=== PATIENT | male | born 1950 | race Caucasian/White ===

== ENCOUNTER → 2018-05-02 | Outpatient (CLI) | payer OTHER | END | disposition home or self-care (01) | LOC: RAH 08:31 | PROVIDERS: ATTEND Internal Medicine | DX: I65.21 Occlusion and stenosis of right carotid artery (principal); I07.1 Rheumatic tricuspid insufficiency | CPT/HCPCS: 93306; 93880 ==

== ENCOUNTER → 2018-06-21 | Outpatient (CLI) | payer OTHER ==
[~2018-06-21] VITALS: Ht 177.8 cm; Wt 79.4 kg
[~2018-06-21] MED LIST: REGADENOSON 0.4 MG/5 ML PF SYG IVP SCH
== END | disposition home or self-care (01) ==
LOC: SHCH 09:27
PROVIDERS: ATTEND Internal Medicine Cardiovascular Disease
DX: G45.9 Transient cerebral ischemic attack, unspecified (principal); I73.9 Peripheral vascular disease, unspecified; I71.9 Aortic aneurysm of unspecified site, without rupture
CPT/HCPCS: 78452; 93017; 96374; A9500 ×2; J2785

== ENCOUNTER → 2018-07-02 | Outpatient (CLI) | payer OTHER | END | disposition home or self-care (01) | LOC: SHCH 13:04 | PROVIDERS: ATTEND Internal Medicine Cardiovascular Disease | DX: I71.4 Abdominal aortic aneurysm, without rupture (principal); I73.9 Peripheral vascular disease, unspecified | CPT/HCPCS: 93925; 93978 ==

== ENCOUNTER → 2018-08-03 | Outpatient (CLI) | payer OTHER ==
[~2018-08-03] VITALS: Ht 175.3 cm; Wt 76.4 kg
[~2018-08-03] MED LIST changes: +ASCO500T9 PO; +ASPI-555 PO; +CLIN300C9 PO; +CLOP75TA32 PO; +FLAX100030 PO; +GLUC-104 PO; +MULT-1192 PO; -REGADENOSON 0.4 MG/5 ML PF SYG IVP SCH; +ROSU40TA20 PO; +UBID200C37 PO
[2018-08-03 12:06] VITALS: BP 143/80
[2018-08-03 12:10] LABS: BASOPHILS % (AUTO) 0.4 % (0.0-5.0); EOSINOPHILS % (AUTO) 0.4 % (0.0-8.0); HEMATOCRIT 47.2 % (42-54); LYMPHOCYTES % (AUTO) 28.8 % (21.0-51.0); MEAN CORPUSCULAR HEMOGLOBIN 32.8 pg (27.0-33.0); MEAN CORPUSCULAR HGB CONC 33.8 g/dL (32.0-36.0); MEAN CORPUSCULAR VOLUME 96.9 fL (79-99); MONOCYTES % (AUTO) 7.2 % (3.0-13.0); NEUTROPHILS % (AUTO) 63.2 % (40.0-77.0); NUCLEATED RED BLOOD CELLS 0.1 % (0.0-0.19); PLATELET COUNT (AUTO) 189 K/uL (130-400); RED BLOOD CELL COUNT(AUTO) 4.87 MIL/uL (4.50-6.20); RED CELL DISTRIBUTION WIDTH 12.7 % (11.0-15.5); WHITE BLOOD COUNT (AUTO) 7.4 K/uL (4.8-10.8)
[2018-08-03 12:12] LABS: APPEARANCE,URINE Clear (CLEAR); BILIRUBIN,URINE Negative (NEGATIVE); COLOR,URINE Yellow (YELLOW); GLUCOSE, URINE (UA) Negative (NEGATIVE); KETONES,URINE Negative (NEGATIVE); LEUKOCYTE ESTERASE ,URINE Negative (NEGATIVE); NITRATE,URINE Negative (NEGATIVE); OCCULT BLOOD,URINE Negative (NEGATIVE); PH,URINE 5.5 (5.0-8.0); PROTEIN,URINE Negative (NEGATIVE); UROBILINOGEN,URINE 0.2 mg/dL (0.2-1.0)
[2018-08-03 12:20] LABS: POTASSIUM 4.7 mmol/L (3.5-5.1)
[2018-08-03 12:24] LABS: INR 0.95 (0.85-1.15); PARTIAL THROMBOPLASTIN TIME 31.7 SEC (26.3-35.5)
--- NOTE | 2018-08-06 15:45 | NUR ---
CX PT HERE. STATES HES HAD 2 NOSEBLEEDS WHERE THE BLOOD IS "GUSHING OUT". INFORMED JOE SHAW OF NOSEBLEEDS. ORDERS RECEIVED TO CX PROCEDURE. PT TO SEE HIS PCP FOR EVALUATION AND POSSIBLE ENT CONSULTATION. INFORMED PT OF ORDERS. VERBALIZED UNDERSTANDING.
== END ==
LOC: DAH 10:00 → EDSTATUS 06-04 08:00
PROVIDERS: ATTEND Internal Medicine Cardiovascular Disease
DX: Z01.818 Encounter for other preprocedural examination (principal); I73.9 Peripheral vascular disease, unspecified; I71.4 Abdominal aortic aneurysm, without rupture
CPT/HCPCS: 36415; 71045; 80048; 81003; 85025; 85610; 85730; 93005

== ENCOUNTER 2018-10-10 05:54 | Inpatient (IN) | payer OTHER | END 2018-10-13 15:10 | disposition home or self-care (01) | LOC: DAH 05:54 → 2AH 05:55 → DAHIP 05:55 → 2AH 17:26 | PROC: 037Y3ZZ Dilation of Upper Artery, Percutaneous Approach (ICD-10-PCS; principal; 2018-10-11 14:45) | PROC: 4A12XSH Monitoring of Cardiac Vascular Perfusion using Indocyanine Green Dye, External Approach (ICD-10-PCS; 2018-10-11 14:45) | PROC: B3101ZZ Fluoroscopy of Thoracic Aorta using Low Osmolar Contrast (ICD-10-PCS; 2018-10-11 14:45) | PROC: B3181ZZ Fluoroscopy of Bilateral Internal Carotid Arteries using Low Osmolar Contrast (ICD-10-PCS; 2018-10-11 14:45) | PROC: B4101ZZ Fluoroscopy of Abdominal Aorta using Low Osmolar Contrast (ICD-10-PCS; 2018-10-11 14:45) | PROC: B41C1ZZ Fluoroscopy of Pelvic Arteries using Low Osmolar Contrast (ICD-10-PCS; 2018-10-11 14:45) | DX: I65.21 Occlusion and stenosis of right carotid artery (principal) ==

== ENCOUNTER → 2018-11-12 | Outpatient (CLI) | payer OTHER ==
[~2018-11-12] MED LIST changes: -CLIN300C9 PO; +IOHEXOL-350 50ML VIAL IV ONE; +IOHEXOL-350 75 ML VIAL IV ONE; +TIMO1DRO2 OU
== END | disposition home or self-care (01) ==
LOC: RAH 08:55
PROVIDERS: ATTEND Internal Medicine Cardiovascular Disease
DX: I71.4 Abdominal aortic aneurysm, without rupture (principal); K57.30 Diverticulosis of large intestine without perforation or abscess without bleeding; I70.209 Unspecified atherosclerosis of native arteries of extremities, unspecified extremity
CPT/HCPCS: 75635; Q9967 ×2

== ENCOUNTER 2018-12-12 08:00 | Inpatient (IN) | payer OTHER ==
[~2018-12-12] VITALS: Ht 172.7 cm; Wt 77.9 kg
[~2018-12-12 08:00] MED LIST changes: -IOHEXOL-350 50ML VIAL IV ONE; -IOHEXOL-350 75 ML VIAL IV ONE
[2018-12-12 09:14] VITALS: BP 169/86
[2018-12-12 09:25] LABS: BASOPHILS % (AUTO) 0.6 % (0.0-5.0); EOSINOPHILS % (AUTO) 1.7 % (0.0-8.0); HEMATOCRIT 45.3 % (42-54); LYMPHOCYTES % (AUTO) 29.8 % (21.0-51.0); MEAN CORPUSCULAR HEMOGLOBIN 31.7 pg (27.0-33.0); MEAN CORPUSCULAR HGB CONC 32.7 g/dL (32.0-36.0); MEAN CORPUSCULAR VOLUME 96.8 fL (79-99); MONOCYTES % (AUTO) 8.8 % (3.0-13.0); NEUTROPHILS % (AUTO) 59.1 % (40.0-77.0); PLATELET COUNT (AUTO) 148 K/uL (130-400); RED BLOOD CELL COUNT(AUTO) 4.68 MIL/uL (4.50-6.20); RED CELL DISTRIBUTION WIDTH 12.7 % (11.0-15.5); WHITE BLOOD COUNT (AUTO) 7.1 K/uL (4.8-10.8)
[2018-12-12 09:25] LABS: APPEARANCE,URINE Clear (CLEAR); BILIRUBIN,URINE Negative (NEGATIVE); COLOR,URINE Yellow (YELLOW); GLUCOSE, URINE (UA) Negative (NEGATIVE); KETONES,URINE Negative (NEGATIVE); LEUKOCYTE ESTERASE ,URINE Negative (NEGATIVE); NITRATE,URINE Negative (NEGATIVE); OCCULT BLOOD,URINE Negative (NEGATIVE); PROTEIN,URINE Negative (NEGATIVE); UROBILINOGEN,URINE 0.2 mg/dL (0.2-1.0)
[2018-12-12 09:36] LABS: POTASSIUM 5.3 mmol/L (3.5-5.1)
[2018-12-12 10:03] LABS: INR 0.96 (0.85-1.15); PARTIAL THROMBOPLASTIN TIME 29.8 SEC (26.3-35.5); PROTHROMBIN TIME 10.1 SEC (9.6-11.6)
[2018-12-12] MEDS ORDERED: SODIUM CHLORIDE 0.9% 1000ML 1,000 ML IV SCH (11:00)
--- NOTE | 2018-12-13 11:30 | NUR ---
ABNORMAL LABS ABNORMAL LABS REPORTED TO DR. Alana ALEJANDRO POTASSIUM 5.3. ORDERS TO REPEAT BMP IN AM UPON ARRIVAL TO HOLDING AREA.
[2018-12-14] VITALS (14 sets, daily range): BP systolic 107–172; BP diastolic 54–93
[2018-12-14] MEDS ORDERED: FENTANYL CITRATE PF 50 MCG/1 ML 2ML VIAL ONE ×2 (06:48→12:06)
[2018-12-14] MEDS ORDERED: LIDOCAINE HCL MPF 1% 5ML VIAL ONE (06:48)
[2018-12-14] MEDS ORDERED: HEPARIN SODIUM 1000UNIT/ML 10ML VIAL ONE ×2 (11:50→12:37)
[2018-12-14] MEDS ORDERED: IODIXANOL 320 MG/ML 100 ML VIAL ONE (11:51)
[2018-12-14] MEDS ORDERED: LIDOCAINE PF 2% 5ML ABBOJECT ONE ×2 (11:52→12:04)
[2018-12-14] MEDS ORDERED: GLYCOPYRROLATE 1 MG/5 ML SYRINGE ONE (11:53)
[2018-12-14] MEDS ORDERED: NEOSTIGMINE 5MG/5ML SYR IV ONE (11:53)
[2018-12-14] MEDS ORDERED: PROPOFOL 10 MG/ML 20ML VIAL IV ONE (11:53)
[2018-12-14] MEDS ORDERED: ROCURONIUM 10MG/1ML SYR 10 MG/ML ML ONE (11:53)
[2018-12-14] MEDS ORDERED: NOREPINEPHRINE BITARTRATE 1 MG/1 ML ML IV ONE (11:54)
[2018-12-14] MEDS ORDERED: CEFAZOLIN SODIUM 1 GM VIAL ONE (12:18)
[2018-12-14] MEDS ORDERED: NOREPINEPHRINE 4MG/NS 250ML 250 ML IV SCH (14:15)
[2018-12-14] MEDS ORDERED: ONDANSETRON HCL 4 MG/2 ML VIAL IV PRN (14:15)
[2018-12-14] MEDS ORDERED: NITROGLYCERIN 50 MG/D5% WATER 250 BOT IV PRN (14:15)
[2018-12-14] MEDS ORDERED: MORPHINE SULFATE 4 MG/1ML SYG IV PRN (14:15)
[2018-12-14] MEDS ORDERED: MORPHINE SULFATE 5 MG/ML VIAL IV PRN (14:15)
[2018-12-14] MEDS ORDERED: SODIUM CHLORIDE 0.9% 1000ML 1,000 ML IV SCH (14:15)
[2018-12-14] MEDS ORDERED: LABETALOL HCL 5 MG/ML 20ML VIAL IV ONE (14:23)
[2018-12-14] MEDS: CEFAZOLIN SODIUM 1 GM VIAL IVP SCH (20:35)
[2018-12-14] MEDS ORDERED: MULTIVITAMIN TABLET PO SCH (21:00)
[2018-12-14] MEDS ORDERED: FLAXSEED OIL PO SCH (21:00)
[2018-12-15] VITALS (17 sets, daily range): BP systolic 108–142; BP diastolic 59–83
[2018-12-15] MEDS: CEFAZOLIN SODIUM 1 GM VIAL IVP SCH (03:26)
[2018-12-15 03:59] LABS: HEMATOCRIT 39.9 % (42-54); MEAN CORPUSCULAR HEMOGLOBIN 31.9 pg (27.0-33.0); MEAN CORPUSCULAR HGB CONC 33.1 g/dL (32.0-36.0); MEAN CORPUSCULAR VOLUME 96.3 fL (79-99); PLATELET COUNT (AUTO) 117 K/uL (130-400); RED BLOOD CELL COUNT(AUTO) 4.14 MIL/uL (4.50-6.20); RED CELL DISTRIBUTION WIDTH 12.7 % (11.0-15.5); WHITE BLOOD COUNT (AUTO) 13.1 K/uL (4.8-10.8)
[2018-12-15 04:10] LABS: CREATININE 0.9 mg/dL (0.5-1.5); POTASSIUM 3.9 mmol/L (3.5-5.1)
[2018-12-15] MEDS ORDERED: CLOPIDOGREL BISULFATE 75 MG TAB PO SCH (09:00)
[2018-12-15] MEDS ORDERED: UBIDECARENONE PO SCH (09:00)
[2018-12-15] MEDS ORDERED: ASCORBIC ACID 500 MG TAB PO SCH (09:00)
[2018-12-15] MEDS ORDERED: TIMOLOL MALEATE 0.5% 5 ML BOTTLE OU SCH (09:00)
[2018-12-15] MEDS ORDERED: MSM PO SCH (09:00)
[2018-12-15] MEDS ORDERED: ASPIRIN 81MG TAB.CHEW PO SCH (09:00)
[2018-12-15] MEDS ORDERED: GLUCOSAMINE SULFATE PO SCH (09:00)
[2018-12-15] MEDS ORDERED: Rosuvastatin Calcium 40 MG PO SCH ×2 (09:00→21:00)
--- NOTE | 2018-12-15 10:15 | NUR ---
Report given to GUNNAR King and patient moved to room 228
--- NOTE | 2018-12-15 11:00 | NUR ---
cm note pt rsides alone independent with adls and self care, no dme. dc plan is back to home. family will assist as needed. Addendum: 12/15/18 at 1854 by REAGAN PINEDO CM Amended: Links added.
== END 2018-12-15 14:05 | disposition home or self-care (01) | DRG 269 ==
LOC: EDSTATUS 08:00 → DAHIP 12-14 05:29 → 2CH 12-14 15:04 → 2DH 12-15 10:22
PROVIDERS: ADMIT Internal Medicine Pulmonary Disease; ATTEND Internal Medicine Pulmonary Disease
PROC: 04V03DZ Restriction of Abdominal Aorta with Intraluminal Device, Percutaneous Approach (ICD-10-PCS; principal; 2018-12-14)
PROC: 047D3ZZ Dilation of Left Common Iliac Artery, Percutaneous Approach (ICD-10-PCS; 2018-12-14)
PROC: 047C3ZZ Dilation of Right Common Iliac Artery, Percutaneous Approach (ICD-10-PCS; 2018-12-14)
PROC: B4101ZZ Fluoroscopy of Abdominal Aorta using Low Osmolar Contrast (ICD-10-PCS; 2018-12-14)
PROC: 047E34Z Dilation of Right Internal Iliac Artery with Drug-eluting Intraluminal Device, Percutaneous Approach (ICD-10-PCS; 2018-12-14)
PROC: B41G1ZZ Fluoroscopy of Left Lower Extremity Arteries using Low Osmolar Contrast (ICD-10-PCS; 2018-12-14)
PROC: B41F1ZZ Fluoroscopy of Right Lower Extremity Arteries using Low Osmolar Contrast (ICD-10-PCS; 2018-12-14)
DX: I71.4 Abdominal aortic aneurysm, without rupture (principal); I10 Essential (primary) hypertension; E78.5 Hyperlipidemia, unspecified; F17.200 Nicotine dependence, unspecified, uncomplicated; I65.21 Occlusion and stenosis of right carotid artery; E11.51 Type 2 diabetes mellitus with diabetic peripheral angiopathy without gangrene
CPT/HCPCS: 34705; 34709; 34713; 36415; 37220; 37221; 71045; 80048; 81003; 85025; 85027; 85610; 85730; 86850; 86900; 86901; 86922; 93005; A4344; C1725; C1760; C1769; C1887; C1894; G0378; J0690; J1644; J2001; J2704; J2710; J3010; J3490; J7030; Q9967

== ENCOUNTER → 2019-03-13 | Outpatient (CLI) | payer OTHER ==
[~2019-03-13] MED LIST changes: -ROSU40TA20 PO; +ROSU40TA21 PO
== END | disposition home or self-care (01) ==
LOC: LAB 15:33
PROVIDERS: ATTEND Internal Medicine Cardiovascular Disease
DX: I10 Essential (primary) hypertension (principal); I71.4 Abdominal aortic aneurysm, without rupture; I73.1 Thromboangiitis obliterans [Buerger's disease]
CPT/HCPCS: 36415; 82565; 84520

== ENCOUNTER → 2019-03-22 | Outpatient (CLI) | payer OTHER ==
[~2019-03-22] MED LIST changes: +IOHEXOL 350 MG/ML 100ML INFUS..BTL IV ONE; +IOHEXOL-350 50ML VIAL IV ONE
== END | disposition home or self-care (01) ==
LOC: RAH 08:48
PROVIDERS: ATTEND Internal Medicine Cardiovascular Disease
DX: I71.4 Abdominal aortic aneurysm, without rupture (principal); I71.2 Thoracic aortic aneurysm, without rupture; I73.1 Thromboangiitis obliterans [Buerger's disease]; Z95.828 Presence of other vascular implants and grafts
CPT/HCPCS: 75635; Q9967 ×2

== ENCOUNTER → 2020-02-27 | Outpatient (CLI) | payer OTHER ==
[~2020-02-27] MED LIST changes: +ASCO500T20 PO; -ASCO500T9 PO; -ASPI-555 PO; +ASPI-556 PO; -IOHEXOL 350 MG/ML 100ML INFUS..BTL IV ONE; -IOHEXOL-350 50ML VIAL IV ONE
== END | disposition home or self-care (01) ==
LOC: SHCH 07:53
PROVIDERS: ATTEND Internal Medicine Cardiovascular Disease
DX: I71.4 Abdominal aortic aneurysm, without rupture (principal); R09.89 Other specified symptoms and signs involving the circulatory and respiratory systems; R01.1 Cardiac murmur, unspecified
CPT/HCPCS: 93306; 93356; 93880; 93978

== ENCOUNTER → 2020-08-26 | Outpatient (CLI) | payer OTHER | END | disposition home or self-care (01) | LOC: SHCH 09:51 | PROVIDERS: ATTEND Internal Medicine Cardiovascular Disease | DX: I65.23 Occlusion and stenosis of bilateral carotid arteries (principal) | CPT/HCPCS: 93880 ==

== ENCOUNTER 2020-12-22 05:58 | Day surgery (SDC) | payer OTHER ==
[~2020-12-22] VITALS: Ht 177.8 cm; Wt 86.2 kg
[2020-12-22] VITALS (7 sets, daily range): BP systolic 91–142; BP diastolic 59–85
[~2020-12-22 05:58] MED LIST changes: -CLOP75TA32 PO
[2020-12-22] MEDS ORDERED: NACL 0.9% 1000ML 1,000 ML IV ONE (06:14)
[2020-12-22] MEDS ORDERED: PROPOFOL 10 MG/ML 20ML VIAL IV ONE ×2 (09:22)
== END 2020-12-22 10:15 | disposition home or self-care (01) ==
LOC: ENDO 05:58 → DAH 05:58 → ENDO 10:15
PROVIDERS: ATTEND Internal Medicine Gastroenterology
DX: R19.5 Other fecal abnormalities (principal); Z20.822 Contact with and (suspected) exposure to COVID-19; K63.5 Polyp of colon; K62.1 Rectal polyp; K57.30 Diverticulosis of large intestine without perforation or abscess without bleeding; K64.0 First degree hemorrhoids; E78.2 Mixed hyperlipidemia; I73.9 Peripheral vascular disease, unspecified; I71.9 Aortic aneurysm of unspecified site, without rupture; I25.10 Atherosclerotic heart disease of native coronary artery without angina pectoris; Z86.73 Personal history of transient ischemic attack (TIA), and cerebral infarction without residual deficits; Z79.899 Other long term (current) drug therapy; Z79.82 Long term (current) use of aspirin; Z72.89 Other problems related to lifestyle
CPT/HCPCS: 45385; 87635; 93005; A4215 ×2; A4221; A4222; A4223; A4606; A4620; A4657; A4663; C9803; J2704 ×2; J7030

== ENCOUNTER 2021-01-08 13:10 | Emergency (ER) | payer OTHER ==
[~2021-01-08] VITALS: Ht 177.8 cm; Wt 88.5 kg
[2021-01-08 13:14] VITALS: BP 86/45
[2021-01-08] MEDS ORDERED: DILTIAZEM 50MG VIAL IV ONE (13:31)
[2021-01-08] MEDS ORDERED: 0.9%NACL 100ML 100 ML ONE (13:32)
[2021-01-08 13:35] LABS: BASOPHILS % (AUTO) 0.3 % (0.0-5.0); EOSINOPHILS % (AUTO) 1.5 % (0.0-8.0); HEMATOCRIT 45.4 % (42-54); LYMPHOCYTES % (AUTO) 19.5 % (21.0-51.0); MEAN CORPUSCULAR HEMOGLOBIN 30.3 pg (27.0-33.0); MEAN CORPUSCULAR HGB CONC 31.7 g/dL (32.0-36.0); MEAN CORPUSCULAR VOLUME 95.6 fL (79-99); NEUTROPHILS % (AUTO) 71.5 % (40.0-77.0); PLATELET COUNT (AUTO) 214 K/uL (130-400); RED BLOOD CELL COUNT(AUTO) 4.75 MIL/uL (4.50-6.20); RED CELL DISTRIBUTION WIDTH 13.1 % (11.0-15.5); WHITE BLOOD COUNT (AUTO) 9.5 K/uL (4.8-10.8)
[2021-01-08 13:40] LABS: CREATININE 1.1 mg/dL (0.5-1.5); POTASSIUM 4.7 mmol/L (3.5-5.1)
[2021-01-08 13:45] VITALS: BP 155/114
[2021-01-08 13:45] LABS: ALBUMIN 3.7 g/dL (3.5-5.0); BILIRUBIN,TOTAL 0.5 mg/dL (0.2-1.0); TOTAL PROTEIN, SERUM 7.4 g/dL (6.0-8.3)
[2021-01-08] MEDS: DILTIAZEM 125 MG/25 ML INJ IV ONE (13:45)
[2021-01-08] MEDS: DILTIAZEM 25MG INJ IVP SCH (13:45)
[2021-01-08] MEDS: PROPOFOL 10 MG/ML 20ML VIAL IV ONE (14:30)
[2021-01-08] MEDS: LIDOCAINE HCL 2% VISCOUS 15 ML UDCUP ONE (14:30)
[2021-01-08] MEDS: MIDAZOLAM HCL 1 MG/ML 2ML VIAL ONE ×2 (14:30)
[2021-01-08] MEDS: FENTANYL CITRATE PF 50 MCG/1 ML 2ML VIAL ONE (14:30)
[2021-01-08] MEDS ORDERED: DILT-36 PO (15:13)
[2021-01-08] MEDS: DILTIAZEM 120MG SR CAP PO SCH (17:09)
== END 2021-01-08 19:02 | disposition home or self-care (01) ==
LOC: EDH 13:10
DX: I48.92 Unspecified atrial flutter (principal); I48.91 Unspecified atrial fibrillation; Z79.82 Long term (current) use of aspirin; Z79.899 Other long term (current) drug therapy
CPT/HCPCS: 36415; 80053; 84484; 85025; 92960; 93005 ×2; 93313; 96374; 99152; 99285; J2250 ×2; J2704; J3010; J3490 ×2; 96375

== ENCOUNTER → 2021-01-14 | Outpatient (CLI) | payer OTHER ==
[~2021-01-14] MED LIST changes: +DILT-36 PO
== END | disposition home or self-care (01) ==
LOC: RAH 09:06
PROVIDERS: ATTEND Internal Medicine Cardiovascular Disease
DX: R00.0 Tachycardia, unspecified (principal)
CPT/HCPCS: 93306; 93356

== ENCOUNTER → 2022-08-26 | Outpatient (CLI) | payer OTHER | END | disposition home or self-care (01) | LOC: RAH 15:15 | PROVIDERS: ATTEND Internal Medicine | DX: L03.011 Cellulitis of right finger (principal) | CPT/HCPCS: 73140 ==

== ENCOUNTER → 2025-02-20 | Outpatient (CLI) | payer OTHER ==
[~2025-02-20] MED LIST changes: -ROSU40TA21 PO; +ROSU40TA88 PO
--- NOTE | 2025-02-21 00:05 | HMCIMG ---
EXAMINATION: DUPLEX ULTRASOUND EXAMINATION OF THE BILATERAL CAROTID AND VERTEBRAL ARTERIES. CLINICAL HISTORY: Dizziness. COMPARISON: Carotid Doppler dated 05/02/2018. TECHNIQUE: Real-time ultrasound scan of the bilateral carotid and vertebral arteries, 2-D grayscale, with color Doppler flow and spectral waveform analysis. FINDINGS: Color and spectral Doppler interrogation of the carotid vessels on the right demonstrate peak systolic velocities as follows: CCA (Proximal, mid, and distal): 55, 66, and 55 cm/s respectively. Bulb: 50 cm/s. ECA: 47 cm/s. ICA (Proximal, mid, and distal): 44, 62, and 64 cm/s respectively. Vertebral artery demonstrates antegrade flow: 39 cm/s. Right ICA/CCA ratio: 1.0 Peak systolic velocities on the left are as follows: CCA (Proximal, mid, and distal): 71, 54, and 52 cm/s respectively. Bulb: 72 cm/s. ECA: 95 cm/s. ICA (Proximal, mid, and distal): 84, 78, and 78 cm/s respectively. Vertebral artery demonstrates antegrade flow: 30 cm/s. Left ICA/CCA ratio: 1.2 Both the common carotid arteries and their branches reveal mild intimal thickening. There is a calcified plaque in the right proximal external carotid artery without significant stenosis. There are calcified plaques in the left carotid bulb and proximal internal carotid artery causing about 50% to 60% diameter stenosis. IMPRESSION: Mild intimal thickening in the bilateral carotid arteries and their branches. Calcified plaque in the right proximal external carotid artery without significant stenosis. Calcified plaques in the left carotid bulb and proximal internal carotid artery causing about 50% to 60% diameter stenosis. There is no significant flow limiting lesions in the remainder of the arteries. /[place]
--- NOTE | 2025-02-21 00:06 | HMCIMG ---
EXAMINATION: ULTRASOUND SCREENING OF THE ABDOMINAL AORTA WITH COLOR DOPPLER. CLINICAL HISTORY: Abdominal aortic aneurysm. COMPARISON: No prior studies. TECHNIQUE: Real-time grayscale ultrasound images of the aorta. In addition, color Doppler is medically necessary to perform in order to evaluate vascularity and blood flow. FINDINGS: The distal aorta is dilated and measures 2.5 x 2.6 x 3.0 cm. The proximal and mid aspects of the abdominal aorta are normal in caliber measuring 2.5 x 2.7 x 2.7 cm and 2.5 x 1.9 x 2.7 cm in the craniocaudal, AP and transverse dimensions respectively. There is no evidence of plaques in the aorta. The velocities in the mid and distal aorta are 57 and 36 cm/s. The right common iliac artery is normal in caliber measuring 1.3 x 1.3 x 1.7 cm (PSV is 106 cm/s). The left common iliac artery is normal in caliber measuring 1.3 x 1.1 x 1.6 cm (PSV is 109 cm/s). There is stent in the distal aorta and appears patent. IMPRESSION: Mild intimal thickening in the abdominal aorta. Distal abdominal aortic aneurysm. Patent stent in the distal aorta. /[place]
== END | disposition home or self-care (01) ==
LOC: RAH 09:06
PROVIDERS: ATTEND Internal Medicine Cardiovascular Disease
DX: I35.8 Other nonrheumatic aortic valve disorders (principal); I71.40 Abdominal aortic aneurysm, without rupture, unspecified; I65.23 Occlusion and stenosis of bilateral carotid arteries; R06.02 Shortness of breath
CPT/HCPCS: 76775; 93306; 93880